=== PATIENT | female | born 1995 | race Caucasian/White ===

== ENCOUNTER 2018-07-29 12:37 | Emergency (ER) | payer BC ==
--- NOTE | 2018-07-29 12:59 | UC ---
UC General HPI - HPI Summary HPI Summary: Patient is here for a medication refill of her lexapro she has been on it for the past two years, she has an appointment with her psychiatrist August 26, has 5 more pills lieft at this time - History of Current Complaint Chief Complaint: UCMedRefill Stated Complaint: MED REFILL Time Seen by Provider: 07/29/18 12:40 Hx Obtained From: Patient Hx Last Menstrual Period: 07/11/18 Onset/Duration: Other - taken for 2 years Current Severity: None Pain Intensity: 0 - Allergy/Home Medications Allergies/Adverse Reactions: Allergies Allergy/AdvReac Type Severity Reaction Status Date / Time No Known Allergies Allergy Verified 07/29/18 12:48 Home Medications: Home Medications Gabapentin 300 mg PO 07/29/18 [History] Norethindrone/Eth Est NF [Junel (NF)] 1 tab 07/29/18 [History] PMH/Surg Hx/FS Hx/Imm Hx Previously Healthy: Yes Psychological History: Depression - Surgical History Surgical History: Yes Surgery Procedure, Year, and Place: wisdom teeth extraction - Social History Alcohol Use: Weekly Substance Use Type: None Smoking Status (MU): Current Some Day Smoker Type: Cigarettes Review of Systems All Other Systems Reviewed And Are Negative: Yes Constitutional: Positive: Negative Skin: Positive: Negative Eyes: Positive: Negative ENT: Positive: Negative Respiratory: Positive: Negative Cardiovascular: Positive: Negative Gastrointestinal: Positive: Negative Genitourinary: Positive: Negative Motor: Positive: Negative Neurovascular: Positive: Negative Musculoskeletal: Positive: Negative Neurological: Positive: Negative Psychological: Positive: Negative Is Patient Immunocompromised?: No Physical Exam Triage Information Reviewed: Yes Appearance: Well-Appearing, No Pain Distress, Well-Nourished Vital Signs: Initial Vital Signs Temp 98.1 F 07/29/18 12:44 Pulse 63 07/29/18 12:44 Resp 18 07/29/18 12:44 BP 119/55 07/29/18 12:44 Pulse Ox 99 07/29/18 12:44 Vital Signs Reviewed: Yes Eye Exam: Normal ENT Exam: Normal Dental Exam: Normal Neck exam: Normal Respiratory Exam: Normal Cardiovascular Exam: Normal Abdominal Exam: Normal Bowel Sounds: Positive: Present Musculoskeletal Exam: Normal Neurological Exam: Normal Psychological Exam: Normal Psychological: Positive: Other: - no homocidal or suicide thoughs=ts Skin Exam: Normal Course/Dx - Course Course Of Treatment: hx obtained, exam performed ,meds reviewed, 1 month refill prescribed. - Diagnoses Provider Diagnosis: Depression Discharge - Sign-Out/Discharge Documenting (check all that apply): Patient Departure All imaging exams completed and their final reports reviewed: No Studies - Discharge Plan Condition: Stable Disposition: HOME Prescriptions: Escitalopram * [Lexapro 20 mg (NF)] 20 mg PO DAILY #30 tab Patient Education Materials: Escitalopram (By mouth) Referrals: No Primary Care Phys,NOPCP [Primary Care Provider] - Additional Instructions: 1. your 1 month supply has been sent, follow up with your psychiatrist. - Billing Disposition and Condition Condition: STABLE Disposition: Home - Attestation Statements Provider Attestation: I was available for consult. This patient was seen by the [facility]. The patient was not presented to, seen by, or examined by me. -Giacomo
== END 2018-07-29 13:07 | disposition home or self-care (01) ==
LOC: UCEAST 12:37
DX: F32.9 Major depressive disorder, single episode, unspecified (principal); F17.210 Nicotine dependence, cigarettes, uncomplicated; Z76.0 Encounter for issue of repeat prescription
CPT/HCPCS: 99202; G0463

== ENCOUNTER 2018-09-04 18:20 | Emergency (ER) | payer BC ==
--- NOTE | 2018-09-04 18:48 | UC ---
General HPI - HPI Summary HPI Summary: 23 yo female presents requesting a med refill. She tells me that she had a psychiatrist at school, but graduated in april 2018 and can no longer make appointments there. Her psychiatrist gave her a 3 month supply of her lexapro and gabapentin as a bridge for pt to find a new psychiatrist. Pt had an appointment with a psychiatrist, but at the last minute the provider canceled and pt was unable to reschedule due to scheduling conflicts. She tells me now that she is moving to [facility] in a few weeks and wishes to establish care there, but took her last doses of medication yesterday. She has been taking lexapro 20mg and gabapentin 300mg BID for the last 2-2.5 years and feels good with these. She takes the lexapro for depression and the gabapentin for anxiety/ panic attacks. Currently she denies SI/HI or wanting to hurt herself or others. - History of Current Complaint Stated Complaint: MED REFILL Time Seen by Provider: 09/04/18 18:47 Hx Obtained From: Patient Hx Last Menstrual Period: 07/11/18 Current Severity: None - Allergy/Home Medications Allergies/Adverse Reactions: Allergies Allergy/AdvReac Type Severity Reaction Status Date / Time No Known Allergies Allergy Verified 09/04/18 18:49 PMH/Surg Hx/FS Hx/Imm Hx Psychological History: Anxiety, Depression - Surgical History Surgical History: Yes Surgery Procedure, Year, and Place: wisdom teeth extraction - Family History Known Family History: Positive: None - Social History Lives: With Family Alcohol Use: Weekly Substance Use Type: None Smoking Status (MU): Current Some Day Smoker Type: Cigarettes Review of Systems All Other Systems Reviewed And Are Negative: Yes Constitutional: Positive: Negative Skin: Positive: Negative Respiratory: Positive: Negative Cardiovascular: Positive: Negative Gastrointestinal: Positive: Negative Neurovascular: Positive: Negative Neurological: Positive: Negative Psychological: Positive: Negative Physical Exam - Summary Physical Exam Summary: GENERAL: NAD. WDWN. No pain distress. SKIN: No rashes, sores, lesions, or open wounds. NECK: Supple. Nontender. No lymphadenopathy. CHEST: CTAB. No r/r/w. No accessory muscle use. Breathing comfortably and in no distress. CV: RRR. Without m/r/g. Pulses intact. Cap refill <2seconds ABDOMEN: Soft. NTTP. No distention or guarding. No CVA tenderness. Bowel sounds present NEURO: Alert. PSYCH: Age appropriate behavior. Triage Information Reviewed: Yes Vital Signs: Vital Signs: Temp Pulse Resp BP Pulse Ox 98.3 F 76 16 108/60 100 09/04/18 18:43 09/04/18 18:43 09/04/18 18:43 09/04/18 18:43 09/04/18 18:43 Vital Signs Reviewed: Yes Course/Dx - Course Course Of Treatment: Will refill her medications for a 30 day supply as she is moving to [facility] in a few weeks and, likely, will not be able to establish care within the next week or two with a provider locally. - Diagnoses Provider Diagnosis: Anxiety, Depression Discharge - Sign-Out/Discharge Documenting (check all that apply): Patient Departure All imaging exams completed and their final reports reviewed: No Studies - Discharge Plan Condition: Stable Disposition: HOME Prescriptions: Escitalopram * [Lexapro *] 20 mg PO DAILY #30 tablet Gabapentin CAP(*) [Neurontin 300 CAP(*)] 300 mg PO BID #60 cap Referrals: No Primary Care Phys,NOPCP [Primary Care Provider] - Additional Instructions: If you develop a fever, shortness of breath, chest pain, new or worsening symptoms - please call your PCP or go to the ED immediately. Please schedule an appointment with your Primary doctor and/or a psychiatrist as soon as possible within the next 30 days for continue medication management. - Billing Disposition and Condition Condition: STABLE Disposition: Home - Attestation Statements Provider Attestation: Per institutional requirements, I have reviewed the chart, however, I was not consulted specifically or made aware of this patient by the midlevel provider. I did not personally evaluate, interact with , or disposition this patient.
[2018-09-04 18:49] VITALS: BP 108/60
== END 2018-09-04 19:08 | disposition home or self-care (01) ==
LOC: UCCORT 18:20
DX: F41.9 Anxiety disorder, unspecified (principal); F32.9 Major depressive disorder, single episode, unspecified; Z76.0 Encounter for issue of repeat prescription; Z72.0 Tobacco use
CPT/HCPCS: 99212; G0463